=== PATIENT | female | born 1960 | race Caucasian/White ===

== ENCOUNTER 2024-07-17 10:56 | Emergency (ER) | payer OTHER ==
[~2024-07-17] VITALS: Ht 160 cm; Wt 72.7 kg
[2024-07-17] MEDS: HYDROCODONE/ACETAMINOPHEN 5-325 MG TABLET PO ONE (14:19)
[2024-07-17 15:01] VITALS: TEMP 98.2
[2024-07-17] MEDS ORDERED: TRAM50TA5 PO (15:04)
[2024-07-17 15:32] VITALS: BP 151/71; PULSE 77; RESP 18; O2SAT 99
== END 2024-07-17 15:35 | disposition home or self-care (01) ==
LOC: EMS 10:56
DX: S63.501A Unspecified sprain of right wrist, initial encounter (principal); S80.11XA Contusion of right lower leg, initial encounter; F32.A Depression, unspecified; E11.9 Type 2 diabetes mellitus without complications; F12.90 Cannabis use, unspecified, uncomplicated; Z98.890 Other specified postprocedural states; W01.0XXA Fall on same level from slipping, tripping and stumbling without subsequent striking against object, initial encounter; Y93.89 Activity, other specified; Y92.89 Other specified places as the place of occurrence of the external cause; Y99.8 Other external cause status
CPT/HCPCS: 99284; 73110-TC; 73130-TC; Z7502; Z7610